=== PATIENT | male | born 1985 | race Caucasian/White ===

== ENCOUNTER 2020-05-07 10:03 | Outpatient (REF) | payer BC, SELFPAY ==
[2020-05-07 11:14] LABS: Alanine Aminotransferase 81 U/L (0-40); Albumin Level 4.4 g/dL (3.5-5.0); Alkaline Phosphatase 70 U/L (39-117); Aspartate Amino Transferase 57 U/L (5-37); Bilirubin Direct 0.2 mg/dL (0.0-0.5); Bilirubin Total 0.4 mg/dL (0.0-1.0); Total Protein 7.7 g/dL (6.5-8.0)
== END 2020-05-07 10:04 | disposition home or self-care (01) ==
LOC: HO.LAB 10:03
PROVIDERS: PCP Internal Medicine; Visit Provider Internal Medicine Gastroenterology
DX: K75.81 Nonalcoholic steatohepatitis (NASH) (principal)
CPT/HCPCS: 36415; 80076

== ENCOUNTER → 2020-05-17 08:46 | Outpatient (BNVA) | payer BC, SELFPAY | PROVIDERS: PCP Internal Medicine; Visit Provider Internal Medicine Gastroenterology ==

== ENCOUNTER 2020-06-03 10:10 | Outpatient (REF) | payer BC, SELFPAY ==
--- NOTE | ~2020-06-03 | XR_ITS ---
EXAMINATION: XR LUMBOSACRAL SPINE CLINICAL INFORMATION: Low back pain COMPARISON: None TECHNIQUE: Three views of the lumbosacral spine. FINDINGS: There is normal lumbar segmentation with 5 nonrib-bearing lumbar vertebrae of normal height and normal lumbar lordosis. There is no vertebral compression, spondylolisthesis, or destructive process. There are degenerative disc changes T12-L1 with anterior left lateral bridging osteophyte. There is mild disc narrowing and vertebral spurring L1-L2, L2-L3, and L5-S1 There is spina bifida occulta S1. The SI joints and visualized sacrum are unremarkable. XR/XR lumbar spine 2-3V IMPRESSION: 1. No vertebral compression, spondylolisthesis, destructive process. 2. Degenerative disc changes T12-L3 and L5-S1.
[2020-06-03 11:32] LABS: Alanine Aminotransferase 104 U/L (0-40); Anion Gap 12 (12-20); Aspartate Amino Transferase 56 U/L (5-37); Blood Urea Nitrogen 15 mg/dL (9-16); Calcium 9.7 mg/dL (8.4-10.2); Carbon Dioxide 31 mmol/L (22-29); Chloride 100 mmol/L (96-108); Cholesterol 196 mg/dL; Estimated Glomerular Filt Rate > 60; Glucose Fasting 106 mg/dL (60-99); HDL Cholesterol 45 mg/dL; LDL Cholesterol Calculated 126 mg/dl; Potassium 4.6 mmol/L (3.3-5.1); Sodium 138 mmol/L (135-145); Triglycerides 127 mg/dL
== END 2020-06-03 10:11 | disposition home or self-care (01) ==
LOC: HO.HMGCLDS 10:10
PROVIDERS: Absent Provider Nurse Practitioner Family; PCP Internal Medicine; Visit Provider Internal Medicine
DX: E78.2 Mixed hyperlipidemia (principal); M54.5 Low back pain; E66.9 Obesity, unspecified; K21.9 Gastro-esophageal reflux disease without esophagitis; I10 Essential (primary) hypertension; R73.01 Impaired fasting glucose
CPT/HCPCS: 36415; 72100; 80048; 80061; 84450; 84460

== ENCOUNTER 2020-09-09 11:08 | Outpatient (REF) | payer BC, SELFPAY ==
[2020-09-09 14:02] LABS: MANUAL DIFF FLAG NO
[2020-09-09 14:09] LABS: Basophils Percent Auto 0.6 % (0-2); Eosinophils Absolute Auto 0.2 X10*3/uL (0.0-0.4); Hematocrit 43.8 % (42-52); Hemoglobin 14.6 g/dl (14.0-18.0); Imm Gran Abs Auto 0.02 X10*3/uL (0.00-0.03); Imm Gran Pct Auto 0.3 % (0.0-0.4); Lymphocytes Absolute Auto 2.4 X10*3/uL (1.2-4.9); Lymphocytes Percent Auto 33.9 % (20-40); Mean Corpuscular HGB Conc 33.3 g/dl (31.0-36.0); Mean Corpuscular Hemoglobin 30.3 pg (27.0-33.0); Mean Corpuscular Volume 90.9 fL (80-98); Mean Platelet Volume 9.7 fL (9.4-12.4); Monocytes Absolute Auto 0.6 X10*3/uL (0.1-1.2); Monocytes Percent Auto 8.8 % (2-11); Neutrophils Absolute Auto 3.7 X10*3/uL (2.0-8.3); Neutrophils Percent Auto 53.4 % (45-73); Platelet Count 274 X10*3/uL (160-400); Red Blood Count 4.82 X10*6/uL (4.60-5.80); Red Cell Distribution Width 12.2 % (11.0-16.0); White Blood Count 6.9 X10*3/uL (4.8-10.8)
[2020-09-09 14:13] LABS: Estimated Average Glucose 128 mg/dL; Hemoglobin A1c % 6.1 %
[2020-09-09 14:27] LABS: Alanine Aminotransferase 131 U/L (0-40); Anion Gap 15 (12-20); Aspartate Amino Transferase 82 U/L (5-37); Blood Urea Nitrogen 11 mg/dL (9-16); Calcium 9.4 mg/dL (8.4-10.2); Carbon Dioxide 25 mmol/L (22-29); Chloride 103 mmol/L (96-108); Cholesterol 208 mg/dL; Estimated Glomerular Filt Rate > 60; Glucose Fasting 85 mg/dL (60-99); HDL Cholesterol 47 mg/dL; LDL Cholesterol Calculated 132 mg/dl; Potassium 4.1 mmol/L (3.3-5.1); Sodium 139 mmol/L (135-145); Triglycerides 147 mg/dL
== END 2020-09-09 11:09 | disposition home or self-care (01) ==
LOC: HO.HMGCLDS 11:08
PROVIDERS: PCP Internal Medicine; Visit Provider Internal Medicine
DX: Z00.01 Encounter for general adult medical examination with abnormal findings (principal); E66.01 Morbid (severe) obesity due to excess calories; E78.2 Mixed hyperlipidemia; R73.01 Impaired fasting glucose; I10 Essential (primary) hypertension; K21.9 Gastro-esophageal reflux disease without esophagitis; K75.81 Nonalcoholic steatohepatitis (NASH); F41.1 Generalized anxiety disorder; Z68.42 Body mass index [BMI] 45.0-49.9, adult
CPT/HCPCS: 36415; 80048; 80061; 83036; 84450; 84460; 85025

== ENCOUNTER 2020-11-27 08:29 | Outpatient (REF) | payer BC, SELFPAY ==
--- NOTE | ~2020-11-27 | US_ITS ---
EXAMINATION: US ABDOMEN LIMITED WITH LIVER ELASTOGRAPHY CLINICAL INFORMATION: Nonalcoholic steatohepatitis. COMPARISON: None. TECHNIQUE: Real-time imaging of the abdominal viscera. Noninvasive ultrasound liver fibrosis assessment is performed using Maureen ElastPQ point quantification shear wave elastography (pSWE) with a C5-2 MHz transducer. Multiple elastography samples are obtained. FINDINGS: PANCREAS: Partially visualized pancreatic head and body are normal in appearance. The remainder of the pancreas is obscured from visualization by the overlying bowel gas. LIVER: The liver demonstrates normal size, contour and increased echogenicity. No focal lesion or intrahepatic biliary duct dilatation. The right lobe measures 19.5 cm in length. The left lobe measures 14.3 cm in length. Portal flow is hepatopedal. Shear wave liver elastography median stiffness is 2.11 m/s (reference: normal median stiffness is 1.3 m/s or less). IQR/median stiffness to assess sampling precision is 0.68 (reference: good quality data set is IQR/median stiffness of 0.15 or less). GALLBLADDER: There is echogenic debris seen in the gallbladder. The gallbladder is physiologically distended without evidence of stones, polyps, wall thickening, or pericholecystic fluid. COMMON BILE DUCT: Normal in caliber measuring 0.6 cm in diameter. RIGHT KIDNEY: Normal. No hydronephrosis. No renal calculi or focal parenchymal lesions. The kidney measures 12.8 cm in maximum dimension. FREE FLUID: None. US/US abdomen brothers w elastography IMPRESSION: 1. Hepatic steatosis without any focal lesion. 2. There is echogenic debris within the gallbladder but no kidney stones or wall thickening. 3. Liver elastography: Median liver stiffness value 2.11. Findings suggestive of cACLD ruled in. REFERENCE: Society of Radiologists in Ultrasound Liver Stiffness Thresholds (2020): LIVER STIFFNESS THRESHOLDS: *Liver Stiffness equal or less than 1.3 m/s: High probability of being normal. *Liver Stiffness less than 1.7 m/s: In the absence of other known clinical signs, rules out compensated advanced chronic liver disease. *Liver Stiffness 1.7-2.1 m/s: Suggestive of compensated advanced chronic liver disease but need further test for confirmation. *Liver Stiffness over 2.1 m/s: Rules in compensated advanced chronic liver disease. *Liver Stiffness over 2.4 m/s: Suggestive of clinically significant portal hypertension. QUALITY OF DATA SET: *IQR/Median value equal or less than 0.15 implies a quality data set. *IQR/Median value over 0.15 implies a poor quality data set. SIGNIFICANT CHANGE FROM PRIOR EXAM: Significant change if liver stiffness measurement is 10% or greater from prior exam. OTHER CONSIDERATIONS: The stage of liver fibrosis may be overestimated in the setting of acute hepatitis, liver inflammation, elevated liver function tests, hepatic vascular congestion, obstructive cholestasis, non-fasting state, and infiltrative diseases such as amyloidosis and lymphoma. In some patients with NAFLD, the liver stiffness thresholds for compensated advanced chronic liver disease may be lower. In causes other than viral hepatitis and NAFLD, liver stiffness thresholds are not well established.
== END 2020-11-27 08:30 | disposition home or self-care (01) ==
LOC: HO.US 08:29
PROVIDERS: Visit Provider Internal Medicine Gastroenterology
DX: K75.81 Nonalcoholic steatohepatitis (NASH) (principal)
CPT/HCPCS: 76705; 76981

== ENCOUNTER → 2021-04-15 13:34 | Outpatient (BNVA) | payer OTHER, SELFPAY | PROVIDERS: PCP Internal Medicine; Visit Provider Internal Medicine Gastroenterology ==

== ENCOUNTER 2021-11-10 13:52 | Outpatient (REF) | payer OTHER, SELFPAY ==
--- NOTE | ~2021-11-10 | US_ITS ---
EXAMINATION: US SCROTUM DOPPLER US/US scrotum doppler FINDINGS/IMPRESSION: Ultrasound Doppler of scrotum was dictated with ultrasound scrotum.
--- NOTE | ~2021-11-10 | US_ITS ---
EXAMINATION: US SCROTUM CLINICAL INFORMATION: Slightly tender mass on right scrotum. COMPARISON: None. TECHNIQUE: A sonogram of the scrotum was performed assessing min-scale appearance and color Doppler flow. Spectral Doppler analysis of the arterial and venous flow were performed in the testes bilaterally. FINDINGS: RIGHT: Right testicle measures 4.5 x 2.5 x 3.2 cm, volume 18.8 mL. No focal testicular parenchymal lesions are visualized. Spectral Doppler analysis of the arterial and venous flow is normal in the right testis. Right epididymal head is normal in size. There is small right hydrocele. No varicocele is seen. Right epididymal Doppler flow is normal. LEFT: Left testicle measures 5.1 x 2.5 x 3.0 cm, volume 19.9 mL. No focal testicular parenchymal lesions are visualized. Spectral Doppler analysis of the arterial and venous flow is normal in the left testis. Left epididymal head is normal in size with a small anechoic cyst measuring 0.2 x 0.2 x 0.3 cm. There is a septated left hydrocele. No left varicocele is seen. Left epididymal Doppler flow is normal. US/US scrotum IMPRESSION: Small right hydrocele. Otherwise right epididymis and right testis appears unremarkable. Left epididymal head cyst with a septated hydrocele inferior to the testis and head of epididymis.
== END 2021-11-10 13:53 | disposition home or self-care (01) ==
LOC: HO.US 13:52
PROVIDERS: Visit Provider Internal Medicine
DX: N50.89 Other specified disorders of the male genital organs (principal)
CPT/HCPCS: 76870; 93975

== ENCOUNTER 2022-10-08 10:17 | Outpatient (REF) | payer OTHER, SELFPAY ==
[2022-10-08 11:26] LABS: Estimated Average Glucose 120 mg/dL; Hemoglobin A1c % 5.8 %
[2022-10-08 12:20] LABS: Alanine Aminotransferase 68 U/L (0-40); Albumin Level 4.2 g/dL (3.5-5.0); Alkaline Phosphatase 77 U/L (39-117); Anion Gap 9 (12-20); Aspartate Amino Transferase 40 U/L (5-37); Bilirubin Total 0.6 mg/dL (0.0-1.0); Blood Urea Nitrogen 12 mg/dL (9-16); Calcium 9.1 mg/dL (8.4-10.2); Carbon Dioxide 29 mmol/L (22-29); Chloride 106 mmol/L (96-108); Cholesterol 182 mg/dL; Estimated Glomerular Filt Rate > 60; Glucose Fasting 99 mg/dL (60-99); HDL Cholesterol 41 mg/dL; LDL Cholesterol Calculated 120 mg/dl; Potassium 3.9 mmol/L (3.3-5.1); Sodium 140 mmol/L (135-145); Total Protein 7.8 g/dL (6.5-8.0); Triglycerides 109 mg/dL
== END 2022-10-08 10:18 | disposition home or self-care (01) ==
LOC: HO.HMGCLDS 10:17
PROVIDERS: PCP Internal Medicine; Visit Provider Internal Medicine
DX: Z00.01 Encounter for general adult medical examination with abnormal findings (principal); E66.9 Obesity, unspecified; E78.2 Mixed hyperlipidemia; F41.1 Generalized anxiety disorder; I10 Essential (primary) hypertension; K21.9 Gastro-esophageal reflux disease without esophagitis; K75.81 Nonalcoholic steatohepatitis (NASH); R73.01 Impaired fasting glucose
CPT/HCPCS: 36415; 80053; 80061; 83036

== ENCOUNTER 2022-12-31 09:47 | Outpatient (AMB) | payer OTHER, SELFPAY ==
[2022-12-31 09:55] VITALS: BP 128/80; PULSE 80; O2SAT 98; BMI 45.1
--- NOTE | 2022-12-31 09:55 | A.OFFPC_ITS ---
Vital Signs 12/31/22 09:55 Height 6 ft 7 in Weight 400 lb BMI 45.1 BP 128/80 Blood Pressure Location Rt brachial Position Sitting Pulse 80 Pulse Source Pulse Oximeter Pulse Oximetry (%) 98 Intake Visit Reasons: ER [facility] f/u blood clot 12/28 Intake Note: pt is here for [facility] ED f/u from 12/28/22 for blood clots Allergies No Known Allergies Allergy (Verified 01/01/23 00:08) Medication List - Last Reconciled 01/01/23 by Lanette Santamaria MD apixaban (Eliquis) 10 mg PO BID atorvastatin 10 mg PO DAILY fluoxetine 20 mg PO DAILY gabapentin 300 mg PO TID lisinopril 40 mg PO DAILY omeprazole 40 mg PO DAILY oxycodone 5 mg PO Q4H PRN pentoxifylline ER 400 mg PO BID Tobacco use date assessed: 10/08/22 Dental Screening Dental Screen Date: 12/31/22 Did you have a dental visit in the last 12 months?: Yes Did you have a dental problem in the last 6 months where you did not have access to dental care?: No Was dental information given to patient?: Patient has dentist HPI ER [facility] f/u blood clot 12/28 HPI Details 37-year-old male here today for follow-u p after recent ER visit. He has been complaining of right thigh pain accompanied by some decreased sensation on the lateral aspect of right thigh just above the knee and can extending to just below the thigh, which has been present now for the last several months now. Pain would radiate up to the buttocks or posterior thigh. He states that walking or going up and down stairs makes the pain worse. He was diagnosed to have possible meralgia paresthetica and was placed on gabapentin, this was work related issue. He also had an ultrasound of the right lower extremity which demonstrated a superficial thrombus in the calf x2 of undetermined length secondary to body habitus and the probable occlusive thrombus within the Posterior tibial veins of uncertain length . He was then started on Eliquis and advised to follow-up with Hematology EKG at the ER showed sinus tachycardia at 106 mg/dL. At present he still is experiencing pain in his right thigh and around the knee area, worse with ambulation. He was prescribed oxycodone at the ER but did not want to take it, has just been taking gabapentin which has afforded only has minimal improvement in pain. [facility] Medical History (Updated 12/31/22 @ 10:26 by Lanette Santamaria MD) Acute DVT of right tibial vein Sprain of posterior shoulder joint Annual visit for general adult medical examination with abnormal findings JULIANA on CPAP Chronic low back pain Generalized anxiety disorder Obesity Mixed dyslipidemia Chronic GERD Essential hypertension Impaired fasting glucose Surgical History Hx of tonsillectomy Family History Mother Hypertension Anxiety and depression Father Substance use disorder Sister Substance use disorder Social History Household Members: Spouse and Children Housing: House Alcohol intake: current Alcohol intake frequency: holidays/special occasions only Patient Tobacco Use Status: Never used Tobacco e-Cigarette/Vaping Use: Never Used service: No Current occupational status: employed Cognitive needs: No Hearing needs: No Vision needs: No Questionnaire Thrive Questionnaire Date Thrive assessed: 10/08/22 I am a: Patient What is your living situation today?: I have a steady place to live Within the past 12 months, did the food you bought not last and you didn't have the money to get more?: Never true Within the past 12 months, did you worry whether your food would run out before you got money to buy more?: Never true AUDIT C Alcohol Use Questionnaire (AUDIT-C) 1. How often do you have a drink containing alcohol?: Monthly or less 2. How many drinks containing alcohol do you have on a typical day when you are drinking?: 1 or 2 3. How often do you have six or more drinks on one occasion?: Less than monthly Total Score: 2 MARIO ALBERTO-7 AMB Questionnaire MARIO ALBERTO-7 Date MARIO ALBERTO - 7 assessed: 10/08/22 Feeling nervous, anxious, or on edge: 1 = Several days Not being able to stop or control worryin = Several days Worrying too much about different things: 1 = Several days Trouble relaxin = Several days Being so restless that it is hard to sit still: 0 = Not at all Becoming easily annoyed or irritable: 2 = More than half the days Feeling afraid as if something awful might happen: 0 = Not at all Total MARIO ALBERTO-7 score (0-4 normal; 5-9 mild; 10-14 moderate; 15-21 severe): 6 Source: Developed by Drs. Trey Riley, Carrie Blanco, Terrence Peña and colleagues, with an educational marlena from [employer]. Review of Systems Const Reports no additional complaints ENT Reports no additional complaints Card Denies chest pain, Denies irregular heart rhythm, Denies lightheadedness, Denies dyspnea and Denies dyspnea on exertion Resp Denies cough, Denies pain on inspiration, Denies dyspnea and Denies dyspnea on exertion GI Reports no additional complaints Musc Reports as per HPI Neuro Reports no additional complaints Physical exam (Primary Care) Vital Signs: Last Vital Signs Pulse 80 12/31/22 09:55 BP 128/80 12/31/22 09:55 Pulse Ox 98 12/31/22 09:55 BMI result Body Mass Index 45.1 Tobacco/Smoking Status: Tobacco use Status Tobacco use date assessed 10/08/22 12/31/22 09:56 Patient Tobacco Use Status Never used Tobacco 12/31/22 09:56 e-Cigarette/Vaping Use Never Used 12/31/22 09:56 Thrive Assessment: Date of Thrive Assessment Date Thrive assessed 10/08/22 12/31/22 09:56 Const Other: Alert oriented x3, no acute distress noted, production supv present Nutritional Appearance: obese Orientation/consciousness: patient oriented x3 Neck Other: Supple with no lymphadenopathy Resp Auscultation: clear to auscultation bilaterally Cardio Other: S1-S2 present regular rate and rhythm GI Other: Obese, normal bowel sounds, soft, nontender Skin General skin exam: turgor normal, no erythema and no induration Neuro Other: Decreased sensation to touch on lateral checked of right thigh and right knee General: patient oriented x3, gait normal, tone normal and moves all extremities Extrem Right lower extremity: normal to inspection, full ROM, normal capillary refill and no joint enlargement; no edema Assessment and Plan Assessment & Plan (1) Acute DVT of right tibial vein: Code(s): I82.441 - Acute embolism and thrombosis of right tibial vein Plan: Continued on Eliquis, referred to hematology for further evaluation of unprovoked DVT in right lower extremity Orders: Referrals Hematology & Oncology Referral I82.441 - Acute embolism and thrombosis of right tibial vein Coding Level of Care Code Est Pt Level 3 (50185) Diagnoses Acute DVT of right tibial vein I82.441
== END 2022-12-31 14:08 | disposition home or self-care (01) ==
PROVIDERS: PCP Internal Medicine; Visit Provider Internal Medicine
DX: I82.441 Acute embolism and thrombosis of right tibial vein (principal)
CPT/HCPCS: 99213

== ENCOUNTER → 2023-01-11 12:38 | Outpatient (BNV) | payer OTHER, SELFPAY | PROVIDERS: PCP Internal Medicine; Visit Provider Internal Medicine | DX: I82.441 Acute embolism and thrombosis of right tibial vein (principal) | CPT/HCPCS: 99203; 99213 ==

== ENCOUNTER 2023-01-15 13:00 | Outpatient (REF) | payer OTHER, SELFPAY ==
--- NOTE | ~2023-01-15 | US_ITS ---
EXAMINATION: US VENOUS ULTRASOUND WITH DOPPLER LOWER EXTREMITY, RIGHT CLINICAL INFORMATION: DVT. History of posterior tibial vein clot. COMPARISON: None available. TECHNIQUE: Ultrasound of the deep veins is performed from the hip to the calf with compression sonography and color and pulse Doppler assessment. Spectral analysis with color-flow imaging is performed. FINDINGS: There is normal venous compression and respiratory variation and augmented flow. The visualized common femoral vein, superficial femoral vein, profunda femoral vein, popliteal vein, and the trifurcation region shows no evidence of deep venous thrombosis. There is no significant popliteal fossa cyst. If the patient's symptoms persist, followup ultrasound in 5 days 7 days might be of value to exclude proximal propagation from a non-visualized calf vein. US/US venous duplex LE RT IMPRESSION: No DVT demonstrated in the right lower extremity.
== END 2023-01-15 13:01 | disposition home or self-care (01) ==
LOC: HO.US 13:00
PROVIDERS: Visit Provider Internal Medicine
DX: I82.441 Acute embolism and thrombosis of right tibial vein (principal)
CPT/HCPCS: 93971

== ENCOUNTER 2023-03-19 08:44 | Outpatient (AMB) | payer OTHER, SELFPAY ==
--- NOTE | 2023-03-19 08:50 | A.OFFPC_ITS ---
Vital Signs 03/19/23 08:51 Height 6 ft 7 in Weight 405 lb 8 oz BMI 45.7 BP 136/80 Blood Pressure Location Rt brachial Position Sitting Pulse 82 Pulse Source Pulse Oximeter Pulse Oximetry (%) 97 Oxygen Delivery Method Room Air Intake Visit Reasons: Discuss medication Intake Note: pt is here to discuss his left shoulder and arm pain that has not resolved by PT Allergies No Known Allergies Allergy (Verified 03/19/23 09:02) Medication List - Last Reconciled 03/19/23 by Lanette Santamaria MD apixaban (Eliquis) 5 mg PO BID atorvastatin 10 mg PO DAILY fluoxetine 20 mg PO DAILY lisinopril 40 mg PO DAILY omeprazole 40 mg PO DAILY Tobacco use date assessed: 03/19/23 Dental Screening Dental Screen Date: 03/19/23 Did you have a dental visit in the last 12 months?: Yes Did you have a dental problem in the last 6 months where you did not have access to dental care?: No Was dental information given to patient?: Patient has dentist HPI Discuss medication HPI Details 37-year-old male complaining of pain in left side of his neck and left upper back going down left shoulder and occasionally down the left side of his chest, accompanied by numbness and tingling going down left arm up to the last 3 digits of his left hand. This has been present now for the last 4 months. No history of trauma, is left handed and has been doing some heavy lifting at work. Denies any urinary or stool incontinence, no gait instability. He has been having physical therapy for the last several weeks now with no relief afforded. He has been given oral steroids and has taken gabapentin up to 1200 mg daily again which has not afforded any relief. He has been taking up to 2 g of Tylenol arthritis which affords only temporary and some relief of symptoms. He states that he had an x-ray of her cervical spine done several weeks ago which did not show any abnormality [facility] Medical History Cervical radiculopathy Neck pain on left side Acute DVT of right tibial vein Sprain of posterior shoulder joint Annual visit for general adult medical examination with abnormal findings JULIANA on CPAP Chronic low back pain Generalized anxiety disorder Obesity Mixed dyslipidemia Chronic GERD Essential hypertension Impaired fasting glucose Surgical History Hx of tonsillectomy Family History Mother Hypertension Anxiety and depression Father Substance use disorder Sister Substance use disorder Social History Household Members: Spouse and Children Housing: House Alcohol intake: current Alcohol intake frequency: holidays/special occasions only Patient Tobacco Use Status: Never used Tobacco e-Cigarette/Vaping Use: Never Used Second Hand Smoke Exposure: No service: No Current occupational status: employed Cognitive needs: No Hearing needs: No Vision needs: No Questionnaire Thrive Questionnaire Date Thrive assessed: 10/08/22 MARIO ALBERTO-7 AMB Questionnaire MARIO ALBERTO-7 Date MARIO ALBERTO - 7 assessed: 10/08/22 Source: Developed by Drs. Trey Riley, Carrie Blanco, Terrence Peña and colleagues, with an educational marlena from [employer]. Review of Systems Const Reports as per HPI and Reports no additional complaints ENT Reports no additional complaints Card Reports no additional complaints Resp Reports no additional complaints GI Denies abdominal pain, Denies change in bowel habits, Denies heartburn, Denies fecal incontinence and Denies nausea Denies difficulty urinating and Denies urinary incontinence Musc Reports no additional complaints, Reports as per HPI, Reports radiating pain into limb and Reports tingling (Left upper extremity and fingers) Skin/Breast Denies rash Neuro Reports Sensory deficit (Neuro) (, numbness in left upper arm and on 3rd and 4th digits left), Reports tingling (Left upper extremity and fingers) and Reports paresthesias (Left upper extremity and fingers) Physical exam (Primary Care) Vital Signs: Last Vital Signs Pulse 82 03/19/23 08:51 BP 136/80 03/19/23 08:51 Pulse Ox 97 03/19/23 08:51 Oxygen Delivery Method Room Air 03/19/23 08:51 BMI result Body Mass Index 45.7 Tobacco/Smoking Status: Tobacco use Status Tobacco use date assessed 03/19/23 03/19/23 08:57 Patient Tobacco Use Status Never used Tobacco 03/19/23 08:51 e-Cigarette/Vaping Use Never Used 03/19/23 08:51 Thrive Assessment: Date of Thrive Assessment Date Thrive assessed 10/08/22 03/19/23 08:51 Const Other: Alert oriented x3, no acute distress noted, 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 Nutritional Appearance: obese Orientation/consciousness: patient oriented x3 Neck Other: Supple with no lymphadenopathy Neck: Yes full ROM Chest Chest palpation & inspection: normal inspection of the chest Resp Auscultation: clear to auscultation bilaterally Cardio Other: S1-S2 present regular rate and rhythm GI Other: Obese, normal bowel sounds, soft, nontender Skin General skin exam: turgor normal, no erythema and no induration Neuro General: patient oriented x3, gait normal, tone normal and moves all extremities Cognition (Neuro): normal cognition Motor exam (neuro): 5/5 motor strength present throughout Sensory Exam: Sensory deficit (Neuro) (, numbness in left upper arm and on 3rd and 4th digits left) Extrem Right lower extremity: normal to inspection, full ROM, normal capillary refill and no joint enlargement; no edema Assessment and Plan Assessment & Plan (1) Cervical radiculopathy: Code(s): M54.12 - Radiculopathy, cervical region (2) Neck pain on left side: Code(s): M54.2 - Cervicalgia Plan No relief with physical therapy, gabapentin or oral steroids. Will refer for stat MRI of cervical neck without contrast for further evaluation management and depending on results may need referral to Pain Management or neurosurgery. Orders: Orders MR cervical spine wo con Today M54.12 - Radiculopathy, cervical region, M54.2 - Cervicalgia Coding Level of Care Code Est Pt Level 3 (26142) Diagnoses Cervical radiculopathy M54.12 Neck pain on left side M54.2
[2023-03-19 08:51] VITALS: BP 136/80; PULSE 82; O2SAT 97; BMI 45.7
== END 2023-03-19 10:38 | disposition home or self-care (01) ==
PROVIDERS: PCP Internal Medicine; Visit Provider Internal Medicine
DX: M54.12 Radiculopathy, cervical region (principal); M54.2 Cervicalgia
CPT/HCPCS: 99213

== ENCOUNTER 2023-04-02 14:17 | Outpatient (AMB) | payer OTHER, SELFPAY ==
--- NOTE | 2023-04-02 14:18 | MHC.OFFVIS ---
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 Denies any trauma, injury or falls. He recently recovered from low back pain due to work related injury in December and is returning back to work on Wednesday. 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 Patient has been on Eliquis since December for right lower extremity DVT which occurred during his work injury per patient. Patient reports neck pain radiating down to his left shoulder and medial elbow and down into his left upper extremity with associated numbness, tingling, paresthesias and weakness along his left 4th and 5th digits. Neck pain is reproduced with cervical flexion and side rotations, worse on the left. He also reports mid thoracic numbness and shooting pain left mid axillary line. Right hand dominant but uses left hand to write and eat. Patient attended PT x6 sessions, trialed gabapentin and prednisone with no significant pain relief. His recent MRI shows for mild diffuse degenerative changes without significant central canal or neural foraminal stenosis. 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 Location Neck bilateral shoulders radiates down left arm Duration Pain present for > 6 months Characteristics of symptom or complaint Stabbing, aching, numbness, pulsing, throbbing Aggravating or associated factors Driving, sitting, sleeping on left side Relieving factors Laying down, Tylenol 1800 mg prn, tried gabapentin and prednisone-no relief Treatment MRI- Rayus 03/22/23, PT at [facility]-x6 sessions, made pain worse [facility] Medical History Cervical radiculopathy Neck pain on left side Acute DVT of right tibial vein Sprain of posterior shoulder joint Annual visit for general adult medical examination with abnormal findings JULIANA on CPAP Chronic low back pain Generalized anxiety disorder Obesity Mixed dyslipidemia Chronic GERD Essential hypertension Impaired fasting glucose Surgical History Hx of tonsillectomy Family History Mother Hypertension Anxiety and depression Father Substance use disorder Sister Substance use disorder Social History Household Members: Spouse and Children Housing: House Alcohol intake: current Alcohol intake frequency: holidays/special occasions only Patient Tobacco Use Status: Never used Tobacco e-Cigarette/Vaping Use: Never Used Second Hand Smoke Exposure: No service: No Current occupational status: employed Cognitive needs: No Hearing needs: No Vision needs: No Review of Systems Const All systems reviewed & are unremarkable except as noted in HPI and below Physical Exam Vital Signs: Last Vital Signs Pulse 85 04/02/23 14:27 BP 148/81 H 04/02/23 14:27 Pulse Ox 100 04/02/23 14:27 Oxygen Delivery Method Room Air 04/02/23 14:27 BMI result Body Mass Index 45.5 General: Appears afebrile. Alert and oriented. Mood and affect appropriate. Follows and participates in conversation appropriately. Respiratory effort is unlabored. No cough. No nasal discharge. Able to transition from sit to stand unassisted. Ambulates with bilaterally normal heel strike and toe off. Neck Other: Patient with mildly limited cervical ROM in all planes/especially with left ateral rotation. Reports increased pain with cervical flexion. Spurling compression test negative. Pain is unchanged by Spurling maneuver with retraction. Elvey's tension test negative bilaterally. Lhermitte's test was negative. DTR intact, +2 right and +1 left. Reports paresthesias in left 4th and 5th digits. Patient demonstrated 5/5 right and 4/5 left motor strength of bilateral upper extremities. Increased pain with elbow flexoin. +Tinel's test on the left. 2 + radial pulses. Mild tightness throughout left upper trapezius as well as TTP throughout bilateral upper trapezius muscles. No paravertebral tenderness over facet joints bilaterally. No clonus. Valsalva maneuver negative. Neck: Yes full ROM, Yes supple, No anterior neck swelling, Yes no JVD and Yes prominent dorsocervical fat pad Back/Spine/Pelvis Cervical Spine: cervical ROM normal, loss of normal cervical lordosis, cervical muscular tenderness, pain with cervical ROM, No Cervical spine tenderness and No step off deformity Thoracic/Lumbar Spine: thoracic and lumbar spine normal to inspection, thoracic spinal tenderness (mid thoracic ) and No lumbar spinal tenderness Results Reviewed Results Reviewed: MR SPINE CERVICAL without CONTRAST 03/22/23 at [facility] INDICATION: Cervical radiculopathy. Left upper extremity weakness and pain. Numbness and tingling for approximately 6 months. TECHNIQUE: Unenhanced multiplanar, multisequence MR imaging of the cervical spine. COMPARISON: None. FINDINGS: Normal cervical alignment is demonstrated. Vertebral heights are well maintained. Craniocervical junction is unremarkable. Bone marrow signal is within normal limits, and no suspicious osseous lesion is identified. Prevertebral and paraspinal soft tissues are within normal limits. Visualized portions of the posterior fossa are unremarkable. Cervical cord demonstrates normal course, caliber, and signal characteristics. No epidural fluid collection or hematoma is identified. At C2-3 there is no significant disc herniation or protrusion. No central canal or neural foraminal stenosis is demonstrated. At C3-4 there is disc desiccation with a mild bulging disc. Mild narrowing of the canal. No neural foraminal stenosis is demonstrated. At C4-5 there is disc desiccation with a mild bulging disc. Mild narrowing the canal. No neural foraminal stenosis is demonstrated. At C5-6 there is disc desiccation with a mild bulging disc. Mild narrowing the canal. Mild encroachment upon the neural foramina. At C6-7 there is disc desiccation. No significant disc herniation or protrusion. No central canal or neural foraminal stenosis is demonstrated. At C7-T1 there is disc desiccation. No significant disc herniation or protrusion. No central canal stenosis is demonstrated. Small spurs encroaching upon the neural foramina, left greater than right. At T1-2 there is a small left-sided disc protrusion with associated endplate osteophytes. This mildly narrows the left side of the canal and mildly encroaches upon the left neural foramen. IMPRESSION: No acute bony findings. Mild diffuse degenerative changes as detailed above. The cord is normal in caliber and signal intensity. Assessment & Plan Assessment & Plan (1) Numbness and tingling of left upper extremity: Code(s): R20.0 - Anesthesia of skin; R20.2 - Paresthesia of skin (2) Elbow pain, left: Code(s): M25.522 - Pain in left elbow (3) Neck pain on left side: Code(s): M54.2 - Cervicalgia Plan 1. EMG and NVC studies to rule out ulnar neuropathy, cubital tunnel syndrome. Patient's neck exam is consistent with facetogenic, axial pain components; negative for cervical radiculopathy which is consistent with his recent cervical MRI results. 2. Avoid provocative activities. Script provided for elbow brace. Patient cannot take NSAIDs due to current anticoagulation on Eliquis. Script provided for pregabalin, side effects and precautions reviewed with patient. 3. Will consider Hand Surgery evaluation if positive neurodiagnostic studies for potential therapeutic injection vs surgical evaluation. All questions and concerns have been answered and patient agreed with the plan. Follow up for EMG results and sooner if needed. Orders: Orders NE electromyogram (EMG) 04/02/23 M54.12 - Radiculopathy, cervical region, R20.0 - Anesthesia of skin, R20.2 - Paresthesia of skin NE nerve conduction velocity 04/02/23 M54.12 - Radiculopathy, cervical region, R20.0 - Anesthesia of skin, R20.2 - Paresthesia of skin Medications: New arm brace (DESHAWN Elbow Brace) As directed 1 ea 0RF pain M25.522 - Pain in left elbow, R20.0 - Anesthesia of skin, R20.2 - Paresthesia of skin pregabalin 75 mg PO BID 30 days 60 caps 0RF pain M54.12 - Radiculopathy, cervical region, R20.0 - Anesthesia of skin, R20.2 - Paresthesia of skin Coding Level of Care Code New Pt Level 4 (44906) Diagnoses Numbness and tingling of left upper extremity R20.0; R20.2 Elbow pain, left M25.522 Neck pain on left side M54.2
[2023-04-02 14:27] VITALS: BP 148/81; PULSE 85; O2SAT 100; BMI 45.5
== END 2023-04-02 16:27 | disposition home or self-care (01) ==
PROVIDERS: PCP Internal Medicine; Visit Provider Nurse Practitioner Family
DX: R20.0 Anesthesia of skin (principal); R20.2 Paresthesia of skin; M25.522 Pain in left elbow; M54.2 Cervicalgia
CPT/HCPCS: 99204

== ENCOUNTER → 2023-04-02 14:17 | Outpatient (BNVA) | payer OTHER, SELFPAY | PROVIDERS: PCP Internal Medicine; Visit Provider Nurse Practitioner Family ==

== ENCOUNTER 2023-05-14 15:11 | Outpatient (REF) | payer OTHER, SELFPAY ==
--- NOTE | 2023-05-14 15:13 | EMG_ITS ---
Chief complaint: Several months of numbness on left 4th and 5th digits, seems to be coming from left elbow, noted initially while sleeping. Milder numbness in the rest of the fingers. He also has some left scapular pain. Reason for referral: Evaluate for ulnar neuropathy versus radiculopathy Referred by: Barbara Graham NP Procedure done: Left upper extremity NCS/EMG Precautions and/or limitations: None The limb temperature was monitored continuously and remained between 32-36 degrees C during the performance of the NCS. Ulnar motor NCS was performed with moderate elbow flexion between 70-90 degrees, with across-elbow distance of 10 cm. Nerve Conduction Studies Anti Sensory Summary Table ?Stim Site NR Onset (ms) Norm Onset (ms) Peak (ms) Norm Peak (ms) O-P Amp (?V) Norm O-P Amp Site1 Site2 Delta-0 (ms) Dist (cm) Nixon (m/s) Norm Nixon (m/s) Left Median Anti Sensory (2nd Digit) Wrist ? 2.9 4.3 <3.6 17.7 >10 Wrist 2nd Digit 2.9 14.0 48 Left Ulnar Anti Sensory (5th Digit) Wrist ? 2.1 3.1 <3.7 15.3 >15.0 Wrist 5th Digit 2.1 14.0 67 Motor Summary Table ?Stim Site NR Onset (ms) Norm Onset (ms) O-P Amp (mV) Norm O-P Amp iAmp (mV) Amp (1st) (%) Site1 Site2 Delta-0 (ms) Dist (cm) Nixon (m/s) Norm Nixon (m/s) Left Median Motor (Abd Poll Brev) Wrist ? 3.9 <3.9 15.7 >4.5 19.6 100.0 Elbow Wrist 5.4 25.0 46 >45 Elbow ? 9.3 14.3 17.5 91.1 Left Ulnar Motor (Abd Dig Minimi) Wrist ? 3.0 <3.0 8.7 >5 10.5 100.0 B Elbow Wrist 4.7 23.0 49 >45 B Elbow ? 7.7 7.7 8.9 88.5 A Elbow B Elbow 2.1 10.0 48 >45 A Elbow ? 9.8 7.9 9.2 90.8 Left Ulnar Motor ([facility]I) Wrist ? 4.5 <3.0 4.7 >5 5.5 100.0 B Elbow FDI 4.5 22.0 49 B Elbow ? 9.2 2.9 3.5 61.7 A Elbow B Elbow 4.7 10.0 21 >45 A Elbow ? 11.1 3.2 3.8 68.1 Comparison Summary Table ?Stim Site NR Peak (ms) Norm Peak (ms) P-T Amp (?V) Site1 Site2 Delta-P (ms) Norm Delta (ms) Left Median/Radial Dig I Comparison (Digit 1 - 10cm) Median ? 3.7 <2.9 8.8 Median Radial 1.0 Radial ? 2.7 <2.8 22.1 EMG ?Side Muscle Nerve Root Ins Act Fibs Psw Amp Dur Poly Recrt Int Pat Comment Left 1stDorInt Ulnar C8-T1 Nml Nml Nml Nml Nml 0 Nml Complete Left Biceps Musculocut C5-6 Nml Nml Nml Nml Nml 0 Nml Complete Left Triceps Radial C6-7-8 Nml Nml Nml Nml Nml 0 Nml Complete Left Deltoid Axillary C5-6 Nml Nml Nml Nml Nml 0 Nml Complete Left FlexCarpiUln Ulnar C8,T1 Nml Nml Nml Nml Nml 0 Nml Complete Paraspinal EMG ?Side Muscle Nerve Root Ins Act Fibs Psw Comment Left Cervical Upper Rami Nml Nml Nml Left Cervical Mid Rami Nml Nml Nml Left Cervical Lower Rami Nml Nml Nml FINDINGS: Left ulnar motor nerve, recording at FDI, showed prolonged distal latency, small amplitude and slow conduction velocity across the elbow. This abnormality was not seen when recording ADM muscle. Left median sensory nerve showed prolonged peak latency. Interlatency difference between left median and radial sensory nerves, digit 1, prolonged. All other nerves tested were within normal. Concentric needle EMG was performed in selected muscles of the left upper extremity and cervical paraspinal. Study later did not reveal signs of electric abnormalities as shown in the table below. IMPRESSION: 1. This is an abnormal study. 2. 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 3. There is also electrodiagnostic evidence for left mild median neuropathy at the wrist, consistent with Carpal Tunnel Syndrome. 4.. There is no electrodiagnostic evidence for brachial plexopathy or cervical radiculopathy. Thank you for your kind referral. Kari Porter MD, JOSE ANGEL Board Certified, [place] Board [employer] and [employer] (ABPMR) Board Certified, [place] Board [employer] Electrodiagnostic [employer] (ABEM) CODIN [address] next MTDD
== END 2023-05-14 15:12 | disposition home or self-care (01) ==
LOC: HO.NEURO 15:11
PROVIDERS: PCP Internal Medicine; Visit Provider Nurse Practitioner Family
DX: M54.12 Radiculopathy, cervical region (principal); R20.0 Anesthesia of skin; R20.2 Paresthesia of skin
CPT/HCPCS: 95886; 95909

== ENCOUNTER → 2023-05-14 15:13 | Outpatient (BNV) | payer OTHER, SELFPAY | PROVIDERS: PCP Internal Medicine; Visit Provider Physical Medicine & Rehabilitation | DX: G56.02 Carpal tunnel syndrome, left upper limb (principal); G56.22 Lesion of ulnar nerve, left upper limb; G56.12 Other lesions of median nerve, left upper limb | CPT/HCPCS: 95886; 95909 ==

== ENCOUNTER 2023-05-24 14:48 | Outpatient (AMB) | payer OTHER, SELFPAY ==
--- NOTE | 2023-05-24 14:50 | A.OFFVIS_ITS ---
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 Denies any recent cough, cold, infection, fever, any significant changes in her medical history, medications or recent hospitalizations. PRIOR: Patient is a 37 years old male presents today for initial evaluation of neck, left shoulder and left elbow pain. Denies any trauma, injury or falls. He recently recovered from low back pain due to work related injury in December and is returning back to work on Wednesday. 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 Patient has been on Eliquis since December for right lower extremity DVT which occurred during his work injury per patient. Patient reports neck pain radiating down to his left shoulder and medial elbow and down into his left upper extremity with associated numbness, tingling, paresthesias and weakness along his left 4th and 5th digits. Neck pain is reproduced with cervical flexion and side rotations, worse on the left. He also reports mid thoracic numbness and shooting pain left mid axillary line. Right hand dominant but uses left hand to write and eat. Patient attended PT x6 sessions, trialed gabapentin and prednisone with no significant pain relief. His recent MRI shows for mild diffuse degenerative changes without significant central canal or neural foraminal stenosis. 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 Location Neck bilateral shoulders radiates down left arm Duration Pain present for > 6 months Characteristics of symptom or complaint Stabbing, aching, numbness, pulsing, throbbing Aggravating or associated factors Driving, sitting, sleeping on left side Relieving factors Laying down, Tylenol 1800 mg prn, tried gabapentin and prednisone-no relief Treatment MRI- Rayus 03/22/23, PT at [facility]-x6 sessions, made pain worse [facility] Medical History Cervical radiculopathy Neck pain on left side Acute DVT of right tibial vein Sprain of posterior shoulder joint Annual visit for general adult medical examination with abnormal findings JULIANA on CPAP Chronic low back pain Generalized anxiety disorder Obesity Mixed dyslipidemia Chronic GERD Essential hypertension Impaired fasting glucose Surgical History Hx of tonsillectomy Family History Mother Hypertension Anxiety and depression Father Substance use disorder Sister Substance use disorder Social History Household Members: Spouse and Children Housing: House Alcohol intake: current Alcohol intake frequency: holidays/special occasions only Patient Tobacco Use Status: Never used Tobacco e-Cigarette/Vaping Use: Never Used Second Hand Smoke Exposure: No service: No Current occupational status: employed Cognitive needs: No Hearing needs: No Vision needs: No Review of Systems Const All systems reviewed & are unremarkable except as noted in HPI and below Physical Exam General: Appears afebrile. Alert and oriented. Mood and affect appropriate. Follows and participates in conversation appropriately. Respiratory effort is unlabored. No cough. Able to transition from sit to stand unassisted. Ambulates with bilaterally normal heel strike and toe off. Neck Neck: Yes no lymphadenopathy, Yes supple, No anterior neck swelling, Yes no JVD and Yes prominent dorsocervical fat pad Back/Spine/Pelvis Cervical Spine: cervical muscular tenderness, pain with cervical ROM (left lateral and bending), No Cervical spine tenderness and No step off deformity Thoracic/Lumbar Spine: thoracic and lumbar spine normal to inspection, No thoracic spinal tenderness and No lumbar spinal tenderness Extrem Left upper extremity: elbow/forearm (+Tinel's sign. Increased pain with elbow flexion, pulling or grasping) Details: tenderness Location: of the medial epicondyle and distal pulses intact; no swelling, no ecchymosis and no deformity and wrist (pain with wrist flexion) Results Reviewed Results Reviewed: MR SPINE CERVICAL without CONTRAST 03/22/23 at [facility] INDICATION: Cervical radiculopathy. Left upper extremity weakness and pain. Numbness and tingling for approximately 6 months. TECHNIQUE: Unenhanced multiplanar, multisequence MR imaging of the cervical spine. COMPARISON: None. FINDINGS: Normal cervical alignment is demonstrated. Vertebral heights are well maintained. Craniocervical junction is unremarkable. Bone marrow signal is within normal limits, and no suspicious osseous lesion is identified. Prevertebral and paraspinal soft tissues are within normal limits. Visualized portions of the posterior fossa are unremarkable. Cervical cord demonstrates normal course, caliber, and signal characteristics. No epidural fluid collection or hematoma is identified. At C2-3 there is no significant disc herniation or protrusion. No central canal or neural foraminal stenosis is demonstrated. At C3-4 there is disc desiccation with a mild bulging disc. Mild narrowing of the canal. No neural foraminal stenosis is demonstrated. At C4-5 there is disc desiccation with a mild bulging disc. Mild narrowing the canal. No neural foraminal stenosis is demonstrated. At C5-6 there is disc desiccation with a mild bulging disc. Mild narrowing the canal. Mild encroachment upon the neural foramina. At C6-7 there is disc desiccation. No significant disc herniation or protrusion. No central canal or neural foraminal stenosis is demonstrated. At C7-T1 there is disc desiccation. No significant disc herniation or protrusion. No central canal stenosis is demonstrated. Small spurs encroaching upon the neural foramina, left greater than right. At T1-2 there is a small left-sided disc protrusion with associated endplate osteophytes. This mildly narrows the left side of the canal and mildly encroaches upon the left neural foramen. IMPRESSION: No acute bony findings. Mild diffuse degenerative changes as detailed above. The cord is normal in caliber and signal intensity. NE electromyogram (EMG); NE nerve conduction velocity 05/14/23 FINDINGS: Left ulnar motor nerve, recording at [facility], showed prolonged distal latency, small amplitude and slow conduction velocity across the elbow. This abnormality was not seen when recording ADM muscle. Left median sensory nerve showed prolonged peak latency. Interlatency difference between left median and radial sensory nerves, digit 1, prolonged. All other nerves tested were within normal. Concentric needle EMG was performed in selected muscles of the left upper extremity and cervical paraspinal. Study later did not reveal signs of electric abnormalities as shown in the table below. IMPRESSION: 1. This is an abnormal study. 2. 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 3. There is also electrodiagnostic evidence for left mild median neuropathy at the wrist, consistent with Carpal Tunnel Syndrome. 4.. There is no electrodiagnostic evidence for brachial plexopathy or cervical radiculopathy. Assessment & Plan Assessment & Plan (1) Numbness and tingling of left upper extremity: Code(s): R20.0 - Anesthesia of skin; R20.2 - Paresthesia of skin (2) Elbow pain, left: Code(s): M25.522 - Pain in left elbow (3) Neck pain on left side: Code(s): M54.2 - Cervicalgia (4) Carpal tunnel syndrome, left: Code(s): G56.02 - Carpal tunnel syndrome, left upper limb (5) Ulnar neuropathy of left upper extremity: Code(s): G56.22 - Lesion of ulnar nerve, left upper limb Plan 1. EMG and NVC studies reviewed with patient, showed left ulnar neuropathy and CTS. Patient continues to endorse left sided neck pain, his neck exam is consistent with facetogenic, axial pain components; negative for cervical radiculopathy which is consistent with his recent cervical MRI and recent EMG results. We reviewed diagnostic cervical MBB to confirm his axial cervical spine pain, patient would like to hold off until he obtains Hand Surgeon's evaluation. 2. Avoid provocative activities. Script provided for elbow brace at previous visit, patient reports his insurance declined it and he was not able to obtain this OTC since then. Encouraged night splinting. 3. Refill provided for increased pregabalin dose at 100 mg BID, side effects and precautions reviewed with patient. Patient reports good tolerance and denies any adverse side effects. 4.. Pending Hand Surgery evaluation for potential therapeutic injection vs surgical evaluation. All questions and concerns have been answered and patient agreed with the plan. Follow up for medication review and sooner if needed. Medications: Changed From pregabalin 75 mg PO BID 30 days 60 caps 0RF pain G56.02 - Carpal tunnel syndrome, left upper limb, G56.22 - Lesion of ulnar nerve, left upper limb, M25.522 - Pain in left elbow, R20.0 - Anesthesia of skin, R20.2 - Paresthesia of skin To pregabalin 100 mg PO BID 30 days 60 caps 1RF pain G56.02 - Carpal tunnel syndrome, left upper limb, G56.22 - Lesion of ulnar nerve, left upper limb, M25.522 - Pain in left elbow, R20.0 - Anesthesia of skin, R20.2 - Paresthesia of skin Coding Level of Care Code Est Pt Level 4 (29699) Diagnoses Numbness and tingling of left upper extremity R20.0; R20.2 Elbow pain, left M25.522 Neck pain on left side M54.2 Carpal tunnel syndrome, left G56.02 Ulnar neuropathy of left upper extremity G56.22
[2023-05-24 14:52] VITALS: BP 141/80; PULSE 106; O2SAT 100; BMI 45.5
== END 2023-05-24 15:02 | disposition home or self-care (01) ==
PROVIDERS: PCP Internal Medicine; Visit Provider Nurse Practitioner Family
DX: R20.0 Anesthesia of skin (principal); R20.2 Paresthesia of skin; M25.522 Pain in left elbow; M54.2 Cervicalgia; G56.02 Carpal tunnel syndrome, left upper limb; G56.22 Lesion of ulnar nerve, left upper limb
CPT/HCPCS: 99214

== ENCOUNTER → 2023-05-24 14:48 | Outpatient (BNVA) | payer OTHER, SELFPAY | PROVIDERS: PCP Internal Medicine; Visit Provider Nurse Practitioner Family ==

== ENCOUNTER 2023-06-17 14:23 | Outpatient (AMB) | payer OTHER, SELFPAY ==
--- NOTE | 2023-06-17 14:26 | MHC.OFFVIS ---
Intake Vital Signs 06/17/23 14:27 Height 6 ft 7 in Weight 404 lb BMI 45.5 Intake Visit Reasons: New Pt - left elbow pain Intake Note: Arslan is a Left hand dominant male who presents today as a new patient for a evaluation of his left elbow pain. EMG done 05/14/23. MRI done on 03/22/23 @ [facility]. Patient was seen at Pain Management for his left elbow. Patient would like to discuss his results and next steps. Allergies No Known Allergies Allergy (Verified 06/17/23 14:33) HPI New Pt - left elbow pain HPI Details 37-year-old left hand dominant male who presents in the office today, as a new patient, for an evaluation of left elbow pain. Patient is currently followed by Pain Management who referred him to our office. Per the provider note from 05/24/2023: Patient has been on Eliquis since December for right lower extremity DVT which occurred during his work injury. Patient reports neck pain radiating down to his left shoulder and medial elbow and down into his left upper extremity with associated numbness, tingling, paresthesias and weakness along his left 4th and 5th digits. Patient attended PT x6 sessions, trialed gabapentin and prednisone with no significant pain relief. While in the office today the patient reports his pain is located in the left shoulder. He states this is the main pain for him. He confirms intermittent numbness and tingling into his left hand. He states he notices the numbness and tingling more when he is driving and resting his arm on the door. He states the pain increases when getting up. Patient reports he was told to skip his last appointment with Pain Management by the PM provider due to them feeling he just needs to have surgery on his hand and elbow. COUNT INCLUDES THE [facility] Medical History Cervical radiculopathy Neck pain on left side Acute DVT of right tibial vein Sprain of posterior shoulder joint Annual visit for general adult medical examination with abnormal findings JULIANA on CPAP Chronic low back pain Generalized anxiety disorder Obesity Mixed dyslipidemia Chronic GERD Essential hypertension Impaired fasting glucose Surgical History Hx of tonsillectomy Family History Mother Hypertension Anxiety and depression Father Substance use disorder Sister Substance use disorder Social History Household Members: Spouse and Children Housing: House Alcohol intake: current Alcohol intake frequency: holidays/special occasions only Patient Tobacco Use Status: Never used Tobacco e-Cigarette/Vaping Use: Never Used Second Hand Smoke Exposure: No service: No Current occupational status: employed 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[employer], 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 No ecchymosis, erythema, or edema. Able to perform full finger flexion, extension, abduction, adduction, finger cross, okay sign, and thumbs up without deficit. Able to make a closed fist. Sensation intact. Capillary refill is brisk. Radial pulse intact. Left elbow: Normal to inspection. No ecchymosis, erythema, or edema. No tenderness to palpation over the olecranon. No tenderness to the medial or lateral epicondyle. NVI. Negative Tinel?s at the carpal and cubital tunnel. Assessment & Plan Assessment & Plan (1) Cervical radiculopathy: Code(s): M54.12 - Radiculopathy, cervical region Plan Mr. Ch is a 37-year-old left hand dominant male who presents in the office today, as a new patient, for an evaluation of left elbow pain. Patient is currently followed by Pain Management who referred him to our office. Per the provider note from 05/24/2023: Patient has been on Eliquis since December for right lower extremity DVT which occurred during his work injury. Patient reports neck pain radiating down to his left shoulder and medial elbow and down into his left upper extremity with associated numbness, tingling, paresthesias and weakness along his left 4th and 5th digits. Patient attended PT x6 sessions, trialed gabapentin and prednisone with no significant pain relief. While in the office today the patient reports his pain is located in the left shoulder. He states this is the main pain for him. He confirms intermittent numbness and tingling into his left hand. He states he notices the numbness and tingling more when he is driving and resting his arm on the door. He states the pain increases when getting up. Patient reports he was told to skip his last appointment with Pain Management by the PM provider due to them feeling he just needs to have surgery on his hand and elbow. I feel at this time pain is stemming from the patient?s neck not from his elbow, which correlates to what was seen on the MRI results. I would like for him to be seen by Physiatry for further evaluation. An appointment was scheduled with Physiatry before the patient left the office today. Should they feel this is being caused by the elbow I would like for the patient to follow up with me in the office. Follow up will be PRN, or sooner if needed. MRI of the neck, obtained on 03/22/2023, revealed: No acute bony findings. Mild diffuse degenerative changes as detailed above. The cord is normal in caliber and signal intensity. EMG of the left upper extremity, obtained on 05/14/2023, revealed: 1. This is an abnormal study. 2. 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 3. There is also electrodiagnostic evidence for left mild median neuropathy at the wrist, consistent with Carpal Tunnel Syndrome. 4.. There is no electrodiagnostic evidence for brachial plexopathy or cervical radiculopathy. Patient Instructions: Scribed by Olga Kothari medical lab director, for Jacquelyn Martins PA-C on 06/17/2023 at 2:41 pm, EST. Coding Level of Care Code New Pt Level 4 (01513) Diagnoses Cervical radiculopathy M54.12
[2023-06-17 14:27] VITALS: BMI 45.5
== END 2023-06-17 15:28 | disposition home or self-care (01) ==
PROVIDERS: PCP Internal Medicine; Visit Provider Physician Assistant
DX: M54.12 Radiculopathy, cervical region (principal)
CPT/HCPCS: 99203

== ENCOUNTER → 2023-06-17 14:23 | Outpatient (BNVA) | payer OTHER, SELFPAY | PROVIDERS: PCP Internal Medicine; Visit Provider Physician Assistant ==

== ENCOUNTER 2023-07-22 09:42 | Outpatient (REF) | payer OTHER, SELFPAY ==
--- NOTE | ~2023-07-22 | XR_ITS ---
EXAMINATION: XR CERVICAL SPINE CLINICAL INFORMATION: Pain COMPARISON: None available. TECHNIQUE: 3 views of the cervical spine were obtained. FINDINGS: Bone alignment is normal. No fracture or dislocation. Degenerative spondylosis and mild disc space narrowing at C4-5. Disc spaces are otherwise normal. Prevertebral soft tissues are normal. XR/XR cervical spine 3V IMPRESSION: Degenerative changes at C4-5.
== END 2023-07-22 09:43 | disposition home or self-care (01) ==
LOC: HO.HOSX 09:42
PROVIDERS: Visit Provider Physical Medicine & Rehabilitation
DX: M54.12 Radiculopathy, cervical region (principal); M50.20 Other cervical disc displacement, unspecified cervical region
CPT/HCPCS: 72040

== ENCOUNTER 2023-07-22 11:55 | Outpatient (AMB) | payer OTHER, SELFPAY ==
--- NOTE | 2023-07-22 12:01 | MHC.OFFVIS ---
Intake Intake Visit Reasons: Newprob-Neck pain Intake Note: Arslan is a 37 year old male who presents to the office today for neck pain. Pt states the neck pain started about a year ago without any known injury. 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 Pt states that when he stands up he also gets radiating pain down his arm and under his armpit. Pt states when he is laying down the pain subsides. Allergies No Known Allergies Allergy (Verified 07/22/23 12:01) Medication List - Last Reconciled 07/22/23 by Kari Porter MD arm brace (DESHAWN Elbow Brace) As directed atorvastatin 10 mg PO DAILY fluoxetine 20 mg PO DAILY lisinopril 40 mg PO DAILY omeprazole 40 mg PO DAILY pregabalin 100 mg PO BID 30 days HPI HPI Comments History of Present Illness Details I've seen him for EMG 05/14/23 IMPRESSION: 1. This is an abnormal study. 2. 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 3. There is also electrodiagnostic evidence for left mild median neuropathy at the wrist, consistent with Carpal Tunnel Syndrome. 4.. There is no electrodiagnostic evidence for brachial plexopathy or cervical radiculopathy. Saw pain management and orthopedics, notes reviewed. Here to clarify symptoms if between neck and arm. Neck pain, pointing to left shoulder or trapezius, radiating to elbow. Sometimes it feels down to left hand. Focal point is trapezius and elbow. When he gets up, he would have pain wrapping around left armpit/axilla. This has been going on for a year. No specific injuries. 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 Started as waking up with elbow pain. Not dropping things or weakness. Treatment done so far: lyrica - no relief tylenol 1800mg with 2 hours relief physical therapy - no improvement [facility] Medical History (Updated 07/22/23 @ 13:25 by Kari Porter MD) Cervical radiculitis Cervical disc herniation Cervical radiculopathy Neck pain on left side Acute DVT of right tibial vein Sprain of posterior shoulder joint Annual visit for general adult medical examination with abnormal findings JULIANA on CPAP Chronic low back pain Generalized anxiety disorder Obesity Mixed dyslipidemia Chronic GERD Essential hypertension Impaired fasting glucose Surgical History Hx of tonsillectomy Family History Mother Hypertension Anxiety and depression Father Substance use disorder Sister Substance use disorder Social History Household Members: Spouse and Children Housing: House Alcohol intake: current Alcohol intake frequency: holidays/special occasions only Patient Tobacco Use Status: Never used Tobacco e-Cigarette/Vaping Use: Never Used Second Hand Smoke Exposure: No service: No Current occupational status: employed 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 Patient was appropriately conversant and oriented. Good historian. MSK: Inspection reveals appropriate head and neck positioning. No pain with palpation over the neck musculature. Cervical ROM was full. Spurling's sign negative. Bilateral shoulder, elbow and wrist ROM WNL. No ligamentous laxity or crepitance. No increased effusion. Negative carpal compression. Negative Tinel sign on elbow or wrist. Strength is 5/5 in all muscle groups tested. No increased tone noted. Neurological: Neurologic examination of the upper and lower extremities was nonfocal with intact sensation, muscle stretch reflexes and without focal motor deficits . Owen?s negative bilaterally. Babinski was down going bilaterally. Clonus was negative. Gait is non-antalgic without loss of balance. Results Reviewed Results Reviewed: I independently reviewed the results of the following: MRI done at [facility] reviewed, disc desiccation C4-5 with mild anterior cord effacement? No significant central spinal stenosis. EMG by me 05/14/23 IMPRESSION: 1. This is an abnormal study. 2. 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 3. There is also electrodiagnostic evidence for left mild median neuropathy at the wrist, consistent with Carpal Tunnel Syndrome. 4.. There is no electrodiagnostic evidence for brachial plexopathy or cervical radiculopathy. I reviewed records from the following: Pain management Orthopedics Assessment & Plan Assessment & Plan (1) Cervical radiculitis: Code(s): M54.12 - Radiculopathy, cervical region (2) Cervical disc herniation: Comment: MRI done at [facility], disc herniation at C4-5 but not mentioned on report? Code(s): M50.20 - Other cervical disc displacement, unspecified cervical region (3) Carpal tunnel syndrome, left: Comment: left mild CTS on EMG Code(s): G56.02 - Carpal tunnel syndrome, left upper limb (4) Ulnar neuropathy of left upper extremity: Comment: Left UNE when testing ulnar nerve recording FDI, but normal when recording ADM. Consider repeat EMG prior to consideration of surgery. Code(s): G56.22 - Lesion of ulnar nerve, left upper limb Plan Left sided elbow pain, paresthesia, lateral neck pain. Cervical radiculitis vs UNE vs CTS? Exam today does not show signs of myelopathy or radiculopathy. EMG showed mild CTS only, would not recommend CTS surgery at this point. UNE shown when recording FDI but not with ADM. To help with diagnosis, I recommended trial of cervical epidural injection. If that helps, then it helps with both diagnosis and treatment. If not, then perhaps symptoms are really from UNE. I would repeat EMG though, prior to consideration of surgery. We discussed options. Decided that he will be referred to Dr. Carter Simpson for second opinion and consideration of cervical epidural injection. After that is done and continues to have left elbow pain/numbness, then we would repeat the EMG. Assessment and plan discussed with patient, and patient was agreeable. All questions were answered thoroughly. Kari Porter MD, JOSE ANGEL Board Certified, [place] [employer] and Rehabilitation (ABPMR) Board Certified, [place] Board [employer] Electrodiagnostic [employer] (ABEM) Orders: Orders XR cervical spine 3V Today M54.2 - Cervicalgia Referrals Physiatry Referral M50.20 - Other cervical disc displacement, unspecified cervical region, M54.12 - Radiculopathy, cervical region Coding Level of Care Code Est Pt Level 4 (24668) Diagnoses Cervical radiculitis M54.12 Cervical disc herniation M50.20 Carpal tunnel syndrome, left G56.02 Ulnar neuropathy of left upper extremity G56.22
== END 2023-07-22 12:40 | disposition home or self-care (01) ==
PROVIDERS: PCP Internal Medicine; Visit Provider Physical Medicine & Rehabilitation
DX: G56.02 Carpal tunnel syndrome, left upper limb (principal); G56.22 Lesion of ulnar nerve, left upper limb
CPT/HCPCS: 99213

== ENCOUNTER 2023-10-06 15:28 | Outpatient (REF) | payer OTHER, SELFPAY ==
--- NOTE | ~2023-10-06 | US_ITS ---
EXAMINATION: US VENOUS ULTRASOUND WITH DOPPLER LOWER EXTREMITY, RIGHT CLINICAL INFORMATION: Right lower extremity pain. COMPARISON: Right lower extremities ultrasound 01/15/2023. TECHNIQUE: Ultrasound of the deep veins is performed from the hip to the calf with compression sonography and color and pulse Doppler assessment. Spectral analysis with color-flow imaging is performed. FINDINGS: There is normal venous compression and respiratory variation and augmented flow. The visualized common femoral vein, superficial femoral vein, profunda femoral vein, popliteal vein, and the trifurcation region shows no evidence of deep venous thrombosis. There is no significant popliteal fossa cyst. Enlarged nonaggressive-appearing right inguinal lymph node measuring 3.1 x 0.7 x 1.7 cm with preserved fatty robb and normal appearing cortex, most likely reactive in nature. If the patient's symptoms persist, followup ultrasound in 5 days 7 days might be of value to exclude proximal propagation from a non-visualized calf vein. US/US venous duplex LE RT IMPRESSION: No DVT demonstrated in the right lower extremity.
== END 2023-10-06 15:29 | disposition home or self-care (01) ==
LOC: HO.US 15:28
PROVIDERS: PCP Internal Medicine; Visit Provider Internal Medicine
DX: M79.604 Pain in right leg (principal); Z86.718 Personal history of other venous thrombosis and embolism
CPT/HCPCS: 93971

== ENCOUNTER 2024-03-20 14:01 | Outpatient (AMB) | payer OTHER, SELFPAY ==
--- NOTE | 2024-03-20 14:04 | MHC.OFFVIS ---
Vital Signs 03/20/24 14:10 Height 6 ft 7 in Weight 410 lb 0.957 oz BMI 46.2 BP 148/79 H Blood Pressure Location Lt brachial Position Sitting Pulse 100 Intake Visit Reasons: medication renewal omeprazol Intake Note: Arslan presents in the office as a medication renewal appt. CC: HE states that he is not having any concerns just here today for a renewal Rx. 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: No Allergies No Known Allergies Allergy (Verified 03/20/24 14:13) HPI HPI medication renewal omeprazol: Details: 38 y/o male seen for f/u for abn LFT thought to be due to GUERRIER as well as GERD RECAP Last seen 2020 He had labs checked due to HTN, and noted to have abn LFT, results as below he does not drink alcohol on regular basis, once a month at most does not take nsaids on BP meds he does complain of nausea, attributed to GERD, had for 5 yrs he takes omeprazole which helps the GERD but not the nausea he had EGD 5 yrs at [facility], results not available did endorse sensation of something in throat all the time, but food was going down easy without issues as do liquids he was commenced on vit e and trental INTERIM: He is feeling well he has no major complaints he is happy with omeprazole he does have occasional GERD breakthru- few times a month he denies dysphagia no melena no rectal bleeding he can have gx sx last few weeks diet is not that great- he eats baked chicken, few veg, water minimal soda bloating is annoying him EXAM: GENERAL: The patient has high bmi VITAL SIGNS:see workflow HEENT: Nonicteric sclerae, PERRLA, EOMI. Oropharynx clear. Moist mucous membranes. Conjunctivae appear well perfused. No thyroid mass. CHEST: Chest wall is nontender. HEART: Regular rate and rhythm without murmurs. LUNGS: Clear to auscultation bilaterally. ABDOMEN: Soft, positive bowel sounds, nontender, no organomegaly.no flank tenderness SKIN: No rash, no excessive bruising, petechiae, or purpura. NEUROLOGIC: Cranial nerves II-XII intact without motor/sensory deficit. Psych: normal affect Assessments 1. GUERRIER (nonalcoholic steatohepatitis) 2. GERD-- having breakthru sx, burping 3. High BMI PLAN 1/ Ba swallow 2/ recheck labs 3/ depending on results might need resmetirom, we also talked about weight loss therapy with ozempic etc, he will d/w PCP [facility] Medical History Cervical radiculitis Cervical disc herniation Cervical radiculopathy Neck pain on left side Acute DVT of right tibial vein Sprain of posterior shoulder joint Annual visit for general adult medical examination with abnormal findings JULIANA on CPAP Chronic low back pain Generalized anxiety disorder Obesity Mixed dyslipidemia Chronic GERD Essential hypertension Impaired fasting glucose Surgical History History of esophagogastroduodenoscopy (EGD) Hx of tonsillectomy Family History Mother Hypertension Anxiety and depression Father Substance use disorder Sister Substance use disorder Social History Household Members: Spouse and Children Housing: House Alcohol intake: current Alcohol intake frequency: holidays/special occasions only Patient Tobacco Use Status: Never used Tobacco e-Cigarette/Vaping Use: Never Used Second Hand Smoke Exposure: No service: No Current occupational status: employed 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, 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 Cognitive needs: No Hearing needs: No Vision needs: No Physical Exam Vital Signs: Last Vital Signs Pulse 100 03/20/24 14:10 BP 148/79 H 03/20/24 14:10 BMI result Body Mass Index 46.2 Assessment & Plan Assessment & Plan (1) Nonalcoholic steatohepatitis (GUERRIER): Code(s): K75.81 - Nonalcoholic steatohepatitis (GUERRIER) Category: Medical Plan: as above (2) GERD (gastroesophageal reflux disease): Code(s): K21.9 - Gastro-esophageal reflux disease without esophagitis Category: Medical Plan: as above Orders: Orders Complete Blood Count Auto Diff Today K75.81 - Nonalcoholic steatohepatitis (GUERRIER) Liver Fibrosis Pnl Today K75.81 - Nonalcoholic steatohepatitis (GUERRIER) US abdomen brothers w elastography Today K74.60 - Unspecified cirrhosis of liver, K75.81 - Nonalcoholic steatohepatitis (GUERRIER) Comprehensive Met. Panel Today K75.81 - Nonalcoholic steatohepatitis (GUERRIER) Prothrombin Time INR Today K75.81 - Nonalcoholic steatohepatitis (GUERRIER) FL Modified Barium Swallow Today K21.9 - Gastro-esophageal reflux disease without esophagitis Medications: New esomeprazole magnesium 40 mg PO DAILY 90 caps 2RF Discontinued pregabalin Discontinued Reason: Patient no longer taking 100 mg PO BID 30 days 60 caps 1RF pain G56.02 - Carpal tunnel syndrome, left upper limb, G56.22 - Lesion of ulnar nerve, left upper limb, M25.522 - Pain in left elbow, R20.0 - Anesthesia of skin, R20.2 - Paresthesia of skin omeprazole Discontinued Reason: Doctor's Order 40 mg PO DAILY 90 caps 0RF Coding Level of Care Code Est Pt Level 4 (62260) Diagnoses Nonalcoholic steatohepatitis (GUERRIER) K75.81 GERD (gastroesophageal reflux disease) K21.9
[2024-03-20 14:10] VITALS: BP 148/79; PULSE 100; BMI 46.2
== END 2024-03-20 14:43 | disposition home or self-care (01) ==
PROVIDERS: PCP Internal Medicine; Visit Provider Internal Medicine Gastroenterology
DX: K75.81 Nonalcoholic steatohepatitis (NASH) (principal); K21.9 Gastro-esophageal reflux disease without esophagitis
CPT/HCPCS: 99214

== ENCOUNTER 2024-03-20 14:01 | Outpatient (REF) | payer OTHER, SELFPAY ==
[2024-03-20 15:18] LABS: MANUAL DIFF FLAG NO
[2024-03-20 15:41] LABS: Basophils Absolute Auto 0.1 X10*3/uL (0.0-0.2); Basophils Percent Auto 0.7 % (0-2); Eosinophils Absolute Auto 0.3 X10*3/uL (0.0-0.4); Eosinophils Percent Auto 3.9 % (0-4); Hematocrit 42.6 % (42.0-52.0); Hemoglobin 15.1 g/dl (14.0-18.0); Imm Gran Abs Auto 0.03 X10*3/uL (0.00-0.03); Imm Gran Pct Auto 0.3 % (0.0-0.4); Lymphocytes Absolute Auto 2.9 X10*3/uL (1.2-4.9); Lymphocytes Percent Auto 33.8 % (20-40); Mean Corpuscular HGB Conc 35.4 g/dl (31.0-36.0); Mean Corpuscular Hemoglobin 30.8 pg (27.0-33.0); Mean Corpuscular Volume 86.8 fL (80.0-98.0); Mean Platelet Volume 9.3 fL (9.4-12.4); Monocytes Absolute Auto 0.8 X10*3/uL (0.1-1.2); Monocytes Percent Auto 9.1 % (2-11); Neutrophils Absolute Auto 4.6 x10*3/uL (2.0-8.3); Neutrophils Percent Auto 52.2 % (45-73); Platelet Count 274 X10*3/uL (160-400); Red Blood Count 4.91 X10*6/uL (4.60-5.80); White Blood Count 8.7 X10*3/uL (4.8-10.8)
[2024-03-20 15:49] LABS: INTERNATIONAL NORM RATIO 1.1 (0.9-1.1); Prothrombin Time 12.4 SEC (10.9-12.4)
[2024-03-20 17:18] LABS: Alanine Aminotransferase 85 U/L (0-40); Albumin Level 4.4 g/dL (3.5-5.0); Alkaline Phosphatase 86 U/L (39-117); Anion Gap 11 (12-20); Aspartate Amino Transferase 52 U/L (5-37); Bilirubin Total 0.4 mg/dL (0.0-1.0); Blood Urea Nitrogen 9 mg/dL (9-16); Calcium 9.7 mg/dL (8.4-10.2); Carbon Dioxide 27 mmol/L (22-29); Chloride 105 mmol/L (96-108); Estimated Glomerular Filt Rate > 60; Glucose Random 80 mg/dL (60-115); Potassium 3.9 mmol/L (3.3-5.1); Sodium 139 mmol/L (135-145); Total Protein 8.2 g/dL (6.5-8.0)
[2024-03-27 16:24] LABS: FIB-ALT 64 U/L (9-46); FIB-Alpha-2-Macroglobulin 231 mg/dL (106-279); FIB-Apolipoprotein A1 162 mg/dL (94-176); FIB-GGT 46 U/L (3-90); FIB-Haptoglobin 55 mg/dL (43-212); FIB-Total Bilirubin 0.3 mg/dL (0.2-1.2); Liver Fibrosis Score 0.23; Liver Fibrosis Stage F0-F1; Nec Inflam Act Grade A1; Nec Inflam Act Score 0.36; Reference ID 5238058
== END 2024-03-20 14:02 | disposition home or self-care (01) ==
LOC: HO.LAB 14:01
PROVIDERS: PCP Internal Medicine; Visit Provider Internal Medicine Gastroenterology
DX: K75.81 Nonalcoholic steatohepatitis (NASH) (principal)
CPT/HCPCS: 36415; 80053; 81596; 85025; 85610

== ENCOUNTER 2024-03-24 10:17 | Outpatient (AMB) | payer OTHER, SELFPAY ==
--- NOTE | 2024-03-24 10:15 | MHC.PC.OV ---
Intake Visit Reasons: andriod [phone] discuss GI visit Allergies No Known Allergies Allergy (Verified 03/24/24 10:45) Medication List - Last Reconciled 03/24/24 by Lanette Santamaria MD arm brace (DESHAWN Elbow Brace) As directed atorvastatin 10 mg PO DAILY esomeprazole magnesium 40 mg PO DAILY fluoxetine 20 mg PO DAILY lisinopril 40 mg PO DAILY Tobacco use date assessed: 03/24/24 Dental Screening Dental Screen Date: 03/24/24 Did you have a dental visit in the last 12 months?: Yes Did you have a dental problem in the last 6 months where you did not have access to dental care?: No Was dental information given to patient?: Patient has dentist HPI andriod [phone] discuss GI visit HPI Details - The patient is a 38-year-old male presenting with concerns regarding weight management. - The patient reports experiencing heartburn, with past consultations by Dr. Akins on March 19 focusing on these symptoms. - Management of weight has been recommended to help alleviate heartburn symptom, and has been advised to discuss use of Ozempic to help with weight loss. - The patient has struggled with weight loss despite attempting dietary changes, but no regular exercise - Hyperlipidemia has been assessed previously with a cholesterol check that indicated no significant issues. [facility] Medical History (Updated 03/24/24 @ 10:58 by Lanette Santamaria MD) Morbid obesity with BMI of 40.0-44.9, adult Cervical radiculitis Cervical disc herniation Cervical radiculopathy Neck pain on left side Acute DVT of right tibial vein Sprain of posterior shoulder joint Annual visit for general adult medical examination with abnormal findings JULIANA on CPAP Chronic low back pain Generalized anxiety disorder Obesity Mixed dyslipidemia Chronic GERD Essential hypertension Impaired fasting glucose Surgical History History of esophagogastroduodenoscopy (EGD) Hx of tonsillectomy Family History Mother Hypertension Anxiety and depression Father Substance use disorder Sister Substance use disorder Social History Household Members: Spouse and Children Housing: House Alcohol intake: current Alcohol intake frequency: holidays/special occasions only Patient Tobacco Use Status: Never used Tobacco e-Cigarette/Vaping Use: Never Used Second Hand Smoke Exposure: No service: No Current occupational status: employed 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 1. Little interest or pleasure in doing things: not at all 2. Feeling down, depressed, or hopeless: not at all 3. Trouble falling or staying asleep, or sleeping too much: not at all 4. Feeling tired or having little energy: not at all 5. Poor appetite or overeating: not at all 6. Feeling bad about yourself - or that you are a failure or have let yourself or your family down: not at all 7. Trouble concentrating on things, such as reading the newspaper or watching television: not at all 8. Moving or speaking so slowly that other people could have noticed. Or the opposite - being so fidgety or restless that you have been moving around a lot more than usual: not at all 9. Thoughts that you would be better off or of hurting yourself in some way: not at all Total score: 0 Depression Screening Interpretation: Negative Depression Screening Done: Yes 26995 - PHQ-9 Billing: Yes Source: Developed by Drs. Trey Riley, Carrie Blanco, Terrence Peña and colleagues, with an educational marlena from [employer]. Thrive Questionnaire Date Thrive assessed: 03/24/24 I am a: Patient What is your living situation today?: I have a steady place to live Within the past 12 months, did the food you bought not last and you didn't have the money to get more?: Never true Within the past 12 months, did you worry whether your food would run out before you got money to buy more?: Never true Do you have trouble paying for medicines?: No Do you have trouble getting transportation to medical appointments?: No Do you have trouble paying your heating and electricity bill?: No Do you have trouble taking care of your child, family member or friend?: No Do you have trouble with day-to-day activities such as bathing, preparing meals, shopping, managing finances, etc.?: No Are you currently unemployed and looking for a job?: No Are you interested in more education?: No THRIVE Score: 0 AUDIT C Alcohol Use Questionnaire (AUDIT-C) 1. How often do you have a drink containing alcohol?: Monthly or less 2. How many drinks containing alcohol do you have on a typical day when you are drinking?: 1 or 2 3. How often do you have six or more drinks on one occasion?: Never Total Score: 1 MARIO ALBERTO-7 AMB Questionnaire MARIO ALBERTO-7 Date MARIO ALBERTO - 7 assessed: 03/24/24 Feeling nervous, anxious, or on edge: 0 = Not at all Not being able to stop or control worryin = Not at all Worrying too much about different things: 0 = Not at all Trouble relaxin = Not at all Being so restless that it is hard to sit still: 0 = Not at all Becoming easily annoyed or irritable: 0 = Not at all Feeling afraid as if something awful might happen: 0 = Not at all Total MARIO ALBERTO-7 score (0-4 normal; 5-9 mild; 10-14 moderate; 15-21 severe): 0 Source: Developed by Drs. Trey Riley, Carrie Blanco, Terrence Peña and colleagues, with an educational marlena from [employer]. MARIO ALBERTO-7 Assessment Billing MARIO ALBERTO-7 Assessment Tool: MARIO ALBERTO-7 Assessment 38133 Review of Systems Const Reports no additional complaints ENT Reports no additional complaints Card Reports no additional complaints Resp Reports no additional complaints GI Denies abdominal pain, Denies change in bowel habits, Denies heartburn, Denies fecal incontinence and Denies nausea Denies difficulty urinating and Denies urinary incontinence Musc Reports no additional complaints Psych Reports no additional complaints Endo Reports no additional complaints Physical exam (Primary Care) Tobacco/Smoking Status: Tobacco use Status Tobacco use date assessed 03/24/24 03/24/24 10:16 Patient Tobacco Use Status Never used Tobacco 03/24/24 10:16 e-Cigarette/Vaping Use Never Used 03/24/24 10:16 PHQ-9: PHQ-9 Score PHQ-9: Total score 0 03/24/24 10:59 Depression Screening Interpretation: Negative Thrive Assessment: Date of Thrive Assessment Date Thrive assessed 03/24/24 03/24/24 10:17 Telehealth Telehealth Telehealth Platform: [employer] Location of provider rendering services: practice address Location of patient: address on file Patient Identification confirmed using: Name, : Yes Telehealth method: video Patient verbally consented to treatment: Yes Patient verbally consented to billing insurance company: Yes Patient informed of any privacy concerns related to visit: Yes Minutes spent on Phone/Video with Pt.: 20 Coding Level of Care Code Tele Est Pt Level 3 (38380) Diagnoses Morbid obesity with BMI of 40.0-44.9, adult E66.01; Z68.41 Additional Codes PHQ-9 - 84941 - PHQ-9 Billing: Yes ([id number]) MARIO ALBERTO-7 Assessment Billing - MARIO ALBERTO-7 Assessment Tool: MARIO ALBERTO-7 Assessment 26600 ([id number]) Assessment & Plan Assessment & Plan (1) Morbid obesity with BMI of 40.0-44.9, adult: Code(s): E66.01 - Morbid (severe) obesity due to excess calories; Z68.41 - Body mass index [BMI] 40.0-44.9, adult Category: Medical Plan During the telehealth visit, we discussed the persistent nature of the patient's heartburn and the role of weight management in alleviating these symptoms. I explained the potential use of Ozempic for weight loss and its mechanism of action , and reviewed the drug's possible side effects, noting the potential increase in risk for gallstones and pancreatitis, and discussed the importance of monitoring for changes like sudden vision loss. Insurance coverage was confirmed for Ozempic, and the lowest dose will be trialed, with regular monitoring. We scheduled a follow-up telehealth visit in four weeks to evaluate progress and any side effects experienced. Medications: New Ozempic (semaglutide) for 4 weeks 0.25 mg (0.368 mL) subcut QWEEK 3 mL 1RF 1 month NS
== END 2024-03-24 11:14 | disposition home or self-care (01) ==
LOC: HO.HMCC 10:18
PROVIDERS: PCP Internal Medicine; Visit Provider Internal Medicine
DX: E66.01 Morbid (severe) obesity due to excess calories (principal); Z68.41 Body mass index [BMI] 40.0-44.9, adult

== ENCOUNTER → 2024-03-24 10:17 | Outpatient (BNVA) | payer OTHER, SELFPAY | PROVIDERS: PCP Internal Medicine; Visit Provider Internal Medicine | DX: E66.01 Morbid (severe) obesity due to excess calories (principal); Z68.41 Body mass index [BMI] 40.0-44.9, adult | CPT/HCPCS: 96127 ==

== ENCOUNTER 2024-04-06 08:47 | Outpatient (REF) | payer OTHER, SELFPAY | END 2024-04-06 08:48 | disposition home or self-care (01) | LOC: HO.US 08:47 | PROVIDERS: PCP Internal Medicine; Visit Provider Internal Medicine Gastroenterology | DX: K75.81 Nonalcoholic steatohepatitis (NASH) (principal); K74.60 Unspecified cirrhosis of liver | CPT/HCPCS: 76705; 76981 ==

== ENCOUNTER → 2024-04-06 08:50 | Outpatient (BNV) | payer OTHER, SELFPAY | PROVIDERS: PCP Internal Medicine; Visit Provider Radiology Diagnostic Radiology | DX: R16.0 Hepatomegaly, not elsewhere classified (principal); K75.81 Nonalcoholic steatohepatitis (NASH) | CPT/HCPCS: 76705 ==